=== PATIENT | female | born 1985 | race Asian ===

== ENCOUNTER 2017-09-22 10:45 | Inpatient (IN) | payer OTHER ==
[~2017-09-22] VITALS: Ht 154.9 cm; Wt 70.9 kg
[~2017-09-22 10:45] MED LIST: MULT-257 PO
[2017-09-22] MEDS ORDERED: AMPICILLIN 2 GM in SODIUM CHLORIDE 0.9% 100 ML IVPB STA (10:52)
[2017-09-22] MEDS ORDERED: OXYTOCIN 30U/ 0.9% NaCL 500ML 500 ML IV ONE (10:52)
[2017-09-22] MEDS ORDERED: D5%-LACTATED RINGERS 1,000 ML IV SCH (10:52)
[2017-09-22] MEDS ORDERED: ONDANSETRON 2MG/ML, 2ML IVPush PRN (11:00)
[2017-09-22] MEDS ORDERED: FENTANYL PF 100 MCG/2ML IV PRN (11:00)
[2017-09-22] MEDS ORDERED: FENTANYL PF 100 MCG/2ML IVPush PRN (11:00)
[2017-09-22] MEDS ORDERED: TERBUTALINE 1 MG/ML, 1ML SQ PRN (11:00)
[2017-09-22] MEDS: LACTATED RINGERS 1,000 ML IV SCH ×2 (11:20→13:26)
[2017-09-22 11:22] LABS: HEMATOCRIT 40.1 % (34.6-47.8); HEMOGLOBIN 13.4 g/dL (11.7-16.4); WHITE BLOOD COUNT 15.1 x10^3/uL (3.4-10)
[2017-09-22 11:37] VITALS: BP 134/82
[2017-09-22] MEDS ORDERED: NEWBORN KIT ONE (11:59)
[2017-09-22] MEDS ORDERED: MISOPROSTOL 200 MCG TABLET ONE (12:42)
[2017-09-22] MEDS ORDERED: LIDOCAINE 1%, 20ML ONE (12:42)
[2017-09-22] MEDS ORDERED: IBUPROFEN 600 MG TABLET PO PRN (13:30)
[2017-09-22] MEDS ORDERED: DOCUSATE 100 MG CAPSULE PO PRN (13:30)
[2017-09-22] MEDS ORDERED: ACETAMINOPHEN 325 MG TABLET PO PRN (13:30)
[2017-09-22] MEDS ORDERED: OXYcodone/APAP 5/325MG TABLET PO PRN ×2 (13:30)
[2017-09-22] MEDS ORDERED: METHYLERGONOVINE 0.2 MG/ML IM PRN (13:30)
[2017-09-22] MEDS ORDERED: ONDANSETRON 2MG/ML, 2ML IV PRN (13:30)
[2017-09-22] MEDS ORDERED: OXYTOCIN 30U/ 0.9% NaCL 500ML 500 ML ONE (14:06)
[2017-09-22] MEDS: OXYTOCIN 30U/ 0.9% NaCL 500ML 500 ML IV SCH ×2 (14:20→23:16)
[2017-09-22] MEDS ORDERED: MISOPROSTOL 200 MCG TABLET PR ONE (14:30)
[2017-09-22] MEDS ORDERED: IBUPROFEN 600 MG TABLET ONE (14:47)
[2017-09-22] MEDS ORDERED: OXYcodone/APAP 5/325MG TABLET ONE (14:47)
[2017-09-22] MEDS ORDERED: AMPICILLIN 1 GM in SODIUM CHLORIDE 0.9% 100 ML IVPB SCH (15:00)
[2017-09-22 20:00] VITALS: BP 113/69
[2017-09-22 22:06] LABS: HEMATOCRIT 32.1 % (34.6-47.8); HEMOGLOBIN 10.8 g/dL (11.7-16.4); WHITE BLOOD COUNT 23.7 x10^3/uL (3.4-10)
[2017-09-22 22:27] LABS: DIFF TOTAL CELLS COUNTED 100 CELL DIFF
[2017-09-22 22:30] LABS: VERIFY COUNTS? YES
[2017-09-23 00:32] VITALS: BP 138/80
[2017-09-23 04:25] VITALS: BP 112/74
[2017-09-23 08:00] VITALS: BP 113/69
[2017-09-23] MEDS: PRENATAL VIT/IRON/FA 1 EACH TABLET PO SCH (08:19)
[2017-09-23] MEDS: OXYTOCIN 30U/ 0.9% NaCL 500ML 500 ML IV SCH ×2 (09:16→19:16)
[2017-09-23 20:15] VITALS: BP 113/70
[2017-09-24] MEDS: OXYTOCIN 30U/ 0.9% NaCL 500ML 500 ML IV SCH (05:16)
[2017-09-24 07:30] VITALS: BP 116/69
[2017-09-24] MEDS: PRENATAL VIT/IRON/FA 1 EACH TABLET PO SCH (09:48)
== END 2017-09-24 10:41 | disposition home or self-care (01) | DRG 774 ==
LOC: LDIP 10:45 → 2NW 16:01
PROVIDERS: ADMIT Obstetrics & Gynecology; ATTEND Obstetrics & Gynecology
PROC: 10E0XZZ Delivery of Products of Conception, External Approach (ICD-10-PCS; principal; 2017-09-23)
PROC: 3E0R3BZ Introduction of Anesthetic Agent into Spinal Canal, Percutaneous Approach (ICD-10-PCS; 2017-09-23)
PROC: 00HU33Z Insertion of Infusion Device into Spinal Canal, Percutaneous Approach (ICD-10-PCS; 2017-09-23)
PROC: 0KQM0ZZ Repair Perineum Muscle, Open Approach (ICD-10-PCS; 2017-09-23)
DX: O99.824 Streptococcus B carrier state complicating childbirth (principal); O72.1 Other immediate postpartum hemorrhage; O69.81X0 Labor and delivery complicated by cord around neck, without compression, not applicable or unspecified; O90.1 Disruption of perineal obstetric wound; Z37.0 Single live birth; Z3A.39 39 weeks gestation of pregnancy; O71.4 Obstetric high vaginal laceration alone
CPT/HCPCS: 36415; 82803; 85025; 86850; 86870; 86900; 86902; 86922; 86923; J2590; J7120